=== PATIENT | female | born 1965 | race Two or more races ===

== ENCOUNTER 2023-08-02 11:09 | Emergency (ER) | payer OTHER ==
[~2023-08-02] VITALS: Ht 154.9 cm; Wt 42.6 kg
[2023-08-02] MEDS: CEFEPIME 1 GM in IV D5W 50 ML IV ONE (12:21)
[2023-08-02] MEDS: VANCOMYCIN 1 GM in IV D5W 250 ML IV ONE (12:35)
[2023-08-02 13:38] VITALS: BP 129/86; TEMP 98.1; O2SAT 96
[2023-08-02] MEDS ORDERED: CEPH500C2 PO (13:56)
[2023-08-02] MEDS ORDERED: DOXY100C2 PO (13:56)
== END 2023-08-02 15:20 | disposition home or self-care (01) ==
LOC: ER 11:09
DX: L03.115 Cellulitis of right lower limb (principal); E11.9 Type 2 diabetes mellitus without complications; Z60.2 Problems related to living alone
CPT/HCPCS: A4223; J0692; J3370; J7060

== ENCOUNTER 2023-10-29 13:26 | Inpatient (IN) | payer OTHER ==
[~2023-10-29] VITALS: Ht 152.4 cm; Wt 42.2 kg
[~2023-10-29 13:26] MED LIST: CEPH500C2 PO; DOXY100C2 PO
[2023-10-29 15:09] LABS: BASOPHILS % (AUTO) 0.7 % (0.0-2.0); EOSINOPHILS # (AUTO) 0.1 K/uL (0.0-0.7); EOSINOPHILS % (AUTO) 1.5 % (0.0-6.0); HEMATOCRIT 32 % (33-45); HEMOGLOBIN 10.4 g/dL (11.5-14.8); LYMPHOCYTES % (AUTO) 17.4 % (20.0-44.0); MEAN CORPUSCULAR HEMOGLOBIN 26 PG (26.0-33.0); MEAN CORPUSCULAR HGB CONC 32 g/dl (31.0-36.0); MEAN CORPUSCULAR VOLUME 79 fL (82-100); MONOCYTES # (AUTO) 0.2 K/uL (0.1-1.30); MONOCYTES % (AUTO) 3.9 % (2.0-12.0); NEUTROPHILS # (AUTO) 4.4 K/uL (1.8-8.9); NEUTROPHILS % (AUTO) 76.5 % (43.0-81.0); PLATELET COUNT (AUTO) 317 K/uL (150-450); RED BLOOD CELL COUNT(AUTO) 4.05 MIL/uL (4.0-5.2); RED CELL DISTRIBUTION WIDTH 16.9 % (11.5-15.0); WHITE BLOOD COUNT (AUTO) 5.7 K/uL (4.3-11.0)
[2023-10-29 15:26] LABS: LACTIC ACID 1.6 mmol/L (0.4-2.0)
[2023-10-29 15:32] LABS: ALBUMIN 2.3 g/dL (3.4-5.0); BILIRUBIN,DIRECT 0.2 mg/dL (0.0-0.2); BILIRUBIN,TOTAL 0.4 mg/dL (0.2-1.0); CALCIUM, SERUM 7.4 mg/dL (8.5-10.1); CREATININE 0.5 mg/dL (0.6-1.3); TOTAL PROTEIN, SERUM 7.6 g/dL (6.4-8.2)
[2023-10-29 15:39] LABS: POTASSIUM 2.4 mmol/L (3.5-5.1)
[2023-10-29] MEDS: IV LR 1000 ML 1,000 ML BAG IV ONE (15:48)
[2023-10-29] MEDS ORDERED: POTASSIUM CL. PREMIX PERIPHER. 50 ML ONE ×2 (16:05→17:08)
[2023-10-29] MEDS ORDERED: POTASSIUM CHLORIDE 20 MEQ TAB.PRT.SR PO ONE (16:05)
[2023-10-29 16:10] LABS: APPEARANCE,URINE Clear (CLEAR); BILIRUBIN,URINE Negative (NEGATIVE); BLOOD, URINE Negative Ery/uL (NEGATIVE); COLOR,URINE YELLOW (YELLOW); KETONES,URINE Negative (NEGATIVE); LEUKOCYTE ESTERASE ,URINE Negative (NEGATIVE); NITRITE, URINE Positive (NEGATIVE); PROTEIN,URINE Negative (NEGATIVE); UGLUCOSE >=1000 mg/dL (NEGATIVE)
[2023-10-29] MEDS: POTASSIUM CL. PREMIX PERIPHER. 50 ML IV SCH (16:15)
[2023-10-29] MEDS: POTASSIUM CHLORIDE 20 MEQ TAB.PRT.SR PO ONE (16:15)
[2023-10-29 16:27] LABS: ADD URINE CULTURE YES; BACTERIA,URINE Many /HPF (None Seen); RBC,URINE 0-2 /HPF (0-2); SQUAMOUS EPITHELIAL CELL,UR Few /HPF (None Seen); WBC,URINE 0-2 /HPF (0-3); YEAST,URINE Moderate /HPF (None Seen)
[2023-10-29] MEDS: CEFTRIAXONE 1GM BAG (ER ONLY) 1 GM/50 ML PIGGYBACK IV ONE (17:51)
[2023-10-29] MEDS ORDERED: FLUCONAZOLE (100 MG) 100 MG TABLET PO STA (18:29)
[2023-10-29] MEDS ORDERED: hydrALAZINE HCL IV 20 MG VIAL IV PRN (18:30)
[2023-10-29] MEDS ORDERED: ACETAMINOPHEN 325 MG TABLET PO PRN (18:30)
[2023-10-29] MEDS ORDERED: ONDANSETRON HCL/PF 4 MG/2 ML VIAL IVP PRN (18:30)
[2023-10-29 18:45] VITALS: BP 115/67; TEMP 98.1; O2SAT 100
[2023-10-29 20:15] LABS: LACTIC ACID 2.1 mmol/L (0.4-2.0)
[2023-10-29] MEDS: HEPARIN SODIUM, PORCINE 5000 UNITS/1 ML VIAL SQ SCH (21:31)
[2023-10-29] MEDS: IV NS 0.9% 1,000 ML IV PRN (21:46)
[2023-10-29] MEDS: BLOOD SUGAR DIAGNOSTIC 1 EACH STRIP IN SCH (23:24)
[2023-10-29] MEDS: *INSULIN REGULAR(HUMULIN R)HUM 100 UNIT/ML VIAL SQ PRN (23:46)
[2023-10-30] VITALS: BP 130/86; TEMP 97.5; O2SAT 98
[2023-10-30 04:00] VITALS: BP 124/73; TEMP 98.5; O2SAT 99
[2023-10-30] MEDS: DEXTROSE 50%-WATER 50 ML DISP.SYRIN IV PRN (06:21)
[2023-10-30 07:31] LABS: EOSINOPHILS % (AUTO) 0.2 % (0.0-6.0); HEMATOCRIT 30 % (33-45); HEMOGLOBIN 9.8 g/dL (11.5-14.8); LYMPHOCYTES % (AUTO) 23.8 % (20.0-44.0); MEAN CORPUSCULAR HEMOGLOBIN 27 PG (26.0-33.0); MEAN CORPUSCULAR HGB CONC 33 g/dl (31.0-36.0); MEAN CORPUSCULAR VOLUME 80 fL (82-100); MONOCYTES % (AUTO) 4.2 % (2.0-12.0); NEUTROPHILS % (AUTO) 71.5 % (43.0-81.0); PLATELET COUNT (AUTO) 322 K/uL (150-450); RED BLOOD CELL COUNT(AUTO) 3.68 MIL/uL (4.0-5.2); RED CELL DISTRIBUTION WIDTH 16.9 % (11.5-15.0); WHITE BLOOD COUNT (AUTO) 4.8 K/uL (4.3-11.0)
[2023-10-30 07:32] LABS: BASOPHILS % (AUTO) 0.3 % (0.0-2.0); LYMPHOCYTES # (AUTO) 1.1 K/uL (0.8-4.8); MONOCYTES # (AUTO) 0.2 K/uL (0.1-1.30); NEUTROPHILS # (AUTO) 3.4 K/uL (1.8-8.9)
[2023-10-30 08:00] VITALS: BP 94/58; TEMP 97.7; O2SAT 100
[2023-10-30] MEDS: POLYETHYLENE GLYCOL 3350 17 GM POWD.PACK PO SCH (08:28)
[2023-10-30] MEDS: POTASSIUM CHLORIDE 20 MEQ TAB.PRT.SR PO SCH (08:29)
[2023-10-30] MEDS: DOCUSATE SODIUM LIQ 100 MG/10 ML UDC PO SCH (08:29)
[2023-10-30 08:58] LABS: ALBUMIN 1.8 g/dL (3.4-5.0); BILIRUBIN,TOTAL 0.3 mg/dL (0.2-1.0); CALCIUM, SERUM 6.9 mg/dL (8.5-10.1); CREATININE 0.5 mg/dL (0.6-1.3); MAGNESIUM 1.3 mg/dL (1.8-2.4); PHOSPHORUS 1.9 mg/dL (2.5-4.9); TOTAL PROTEIN, SERUM 6.5 g/dL (6.4-8.2)
[2023-10-30 09:09] LABS: POTASSIUM 2.7 mmol/L (3.5-5.1)
[2023-10-30] MEDS ORDERED: NS 0.9% IV SCH (10:00)
[2023-10-30] MEDS ORDERED: POTASSIUM PHOSPHATE MM IV SCH (10:00)
[2023-10-30] MEDS: MAGNESIUM OXIDE 400 MG TABLET PO ONE (10:12)
[2023-10-30] MEDS: POTASSIUM PHOSPHATE MM 7.5 MMOL in IV NS 0.9% 100 ML IV SCH (10:30)
[2023-10-30] MEDS: INSULIN REGULAR, HUMAN 100 UNIT/ML 3 ML VIAL SQ PRN (11:51)
[2023-10-30 12:00] VITALS: BP 126/77; TEMP 97.6; O2SAT 100
[2023-10-30 16:00] VITALS: BP 123/81; TEMP 98.2; O2SAT 100
[2023-10-30] MEDS: CEFTRIAXONE 1 G in IV D5W 50 ML IV SCH (16:22)
[2023-10-30 20:00] VITALS: BP 131/81; TEMP 98.8; O2SAT 97
[2023-10-31] VITALS (7 sets, daily range): BP systolic 108–138; BP diastolic 67–85; TEMP 98–99.1; O2SAT 96–100
[2023-10-31] MEDS: MORPHINE SULFATE INJ 2 MG/ML DISP.SYRIN IV PRN (08:40)
[2023-10-31] MEDS: DICLOFENAC TOPICAL 100 GM TUBE TP SCH (09:54)
[2023-10-31 11:45] LABS: ALBUMIN 2.1 g/dL (3.4-5.0); BILIRUBIN,TOTAL 0.4 mg/dL (0.2-1.0); CALCIUM, SERUM 7.1 mg/dL (8.5-10.1); CREATININE 0.7 mg/dL (0.6-1.3); POTASSIUM 3.5 mmol/L (3.5-5.1); TOTAL PROTEIN, SERUM 7.8 g/dL (6.4-8.2)
[2023-10-31] MEDS ORDERED: GLUCERNA SHAKE 237 ML CAN PO SCH (17:00)
[2023-10-31] MEDS: GLUCERNA SHAKE 237 ML CAN PO SCH (17:44)
[2023-10-31] MEDS ORDERED: NITR100C15 PO (20:09)
[2023-10-31] MEDS ORDERED: INSU100V7 SQ (20:09)
[2023-11-01] VITALS: BP_SYST 140; BP_DIAS 78; BP_DIAS 81; TEMP 98.4; O2SAT 97
[2023-11-01 00:48] VITALS: BP 130/80; TEMP 98.8; O2SAT 96
[2023-11-01 07:33] LABS: BASOPHILS # (AUTO) 0.1 K/uL (0.0-0.2); EOSINOPHILS % (AUTO) 0.5 % (0.0-6.0); HEMATOCRIT 35 % (33-45); HEMOGLOBIN 11.3 g/dL (11.5-14.8); LYMPHOCYTES # (AUTO) 2.3 K/uL (0.8-4.8); LYMPHOCYTES % (AUTO) 30.7 % (20.0-44.0); MEAN CORPUSCULAR HEMOGLOBIN 26 PG (26.0-33.0); MEAN CORPUSCULAR HGB CONC 32 g/dl (31.0-36.0); MEAN CORPUSCULAR VOLUME 82 fL (82-100); MONOCYTES # (AUTO) 0.3 K/uL (0.1-1.30); MONOCYTES % (AUTO) 3.5 % (2.0-12.0); NEUTROPHILS # (AUTO) 4.8 K/uL (1.8-8.9); NEUTROPHILS % (AUTO) 64.3 % (43.0-81.0); PLATELET COUNT (AUTO) 341 K/uL (150-450); RED CELL DISTRIBUTION WIDTH 17.4 % (11.5-15.0); WHITE BLOOD COUNT (AUTO) 7.5 K/uL (4.3-11.0)
[2023-11-01 07:40] LABS: ALBUMIN 1.8 g/dL (3.4-5.0); BILIRUBIN,TOTAL 0.4 mg/dL (0.2-1.0); CREATININE 0.5 mg/dL (0.6-1.3); POTASSIUM 4.2 mmol/L (3.5-5.1)
[2023-11-01 08:00] VITALS: BP 102/62; TEMP 97.2; O2SAT 96
[2023-11-01 12:00] VITALS: BP 128/70; TEMP 97.9; O2SAT 100
[2023-11-01 16:00] VITALS: BP 118/58; TEMP 97.8; O2SAT 98
[2023-11-01 20:00] VITALS: BP 133/72; TEMP 97.8; O2SAT 97
[2023-11-02] VITALS: BP 133/72; TEMP 97.8; O2SAT 97
[2023-11-02 07:59] LABS: ALBUMIN 1.6 g/dL (3.4-5.0); BILIRUBIN,TOTAL 0.4 mg/dL (0.2-1.0); CALCIUM, SERUM 7.1 mg/dL (8.5-10.1); CREATININE 0.5 mg/dL (0.6-1.3); POTASSIUM 4.2 mmol/L (3.5-5.1); TOTAL PROTEIN, SERUM 6.6 g/dL (6.4-8.2)
[2023-11-02 08:00] VITALS: BP 114/54; TEMP 98.4; O2SAT 99
== END 2023-11-02 13:35 | DRG 637 ==
LOC: ER 13:29 → TELE 18:20
PROVIDERS: ADMIT Internal Medicine; ATTEND Internal Medicine
DX: E10.65 Type 1 diabetes mellitus with hyperglycemia (principal); E43 Unspecified severe protein-calorie malnutrition; B37.49 Other urogenital candidiasis; N39.0 Urinary tract infection, site not specified; E46 Unspecified protein-calorie malnutrition; L97.919 Non-pressure chronic ulcer of unspecified part of right lower leg with unspecified severity; E87.1 Hypo-osmolality and hyponatremia; Z68.1 Body mass index [BMI] 19.9 or less, adult; E87.6 Hypokalemia; E83.51 Hypocalcemia; R53.1 Weakness; R74.01 Elevation of levels of liver transaminase levels; Z91.199 Patient's noncompliance with other medical treatment and regimen due to unspecified reason; Z98.84 Bariatric surgery status; S81.811A Laceration without foreign body, right lower leg, initial encounter; X58.XXXA Exposure to other specified factors, initial encounter; Y93.9 Activity, unspecified; E10.622 Type 1 diabetes mellitus with other skin ulcer; D64.9 Anemia, unspecified; Z79.4 Long term (current) use of insulin; B96.20 Unspecified Escherichia coli [E. coli] as the cause of diseases classified elsewhere; Y92.009 Unspecified place in unspecified non-institutional (private) residence as the place of occurrence of the external cause
CPT/HCPCS: 36415; 71045-TC; 76700-TC; 80048-TC; 80053-TC; 80076-TC; 81001; 82010-TC; 82962-TC; 83605-TC; 83690-TC; 83735-TC; 83880; 84100-TC; 85025-TC; 87086-TC; 97110-TC; 97112-TC; 97116-TC; 97530-TC; 97535-TC; A4223; A6253; G0378; J0696; J1644; J1815; J2270; J3480; J3490; J7030; J7050; J7060; J7120

== ENCOUNTER 2023-12-28 21:47 | Emergency (ER) | payer MEDICARE, OTHER ==
[~2023-12-28] VITALS: Ht 154.9 cm; Wt 42.2 kg
[~2023-12-28 21:47] MED LIST changes: -CEPH500C2 PO; -DOXY100C2 PO; +INSU100V7 SQ; +NITR100C15 PO
[2023-12-28 21:59] VITALS: TEMP 98.6
[2023-12-28] MEDS ORDERED: ACETAMINOPHEN 325 MG TABLET ONE (22:19)
[2023-12-28] MEDS: ACETAMINOPHEN 325 MG TABLET PO ONE (22:21)
[2023-12-29 00:46] VITALS: BP 118/65; O2SAT 99
== END 2023-12-29 00:46 ==
LOC: ER 21:59
DX: S52.022A Displaced fracture of olecranon process without intraarticular extension of left ulna, initial encounter for closed fracture (principal); I10 Essential (primary) hypertension; Z79.899 Other long term (current) drug therapy; W18.39XA Other fall on same level, initial encounter; Y93.89 Activity, other specified; Y92.89 Other specified places as the place of occurrence of the external cause; Y99.8 Other external cause status
CPT/HCPCS: 73060-TC; 73080-TC; 73090-TC

== ENCOUNTER 2024-10-22 15:29 | Inpatient (IN) | payer MEDICARE, OTHER ==
[~2024-10-22] VITALS: Ht 154.9 cm; Wt 52.6 kg
[2024-10-22 03:08] VITALS: BP 119/81; TEMP 97.3; O2SAT 99
[2024-10-22] MEDS: IV NS 0.9% 1,000 ML BAG IV ONE ×2 (15:57→16:57)
[2024-10-22] MEDS ORDERED: ACETAMINOPHEN 650 MG/SUPP.RECT RC ONE (15:58)
[2024-10-22] MEDS ORDERED: ACETAMINOPHEN 325 MG TABLET PO ONE (16:00)
[2024-10-22] MEDS: ACETAMINOPHEN 650 MG/SUPP.RECT RC ONE (16:00)
[2024-10-22 16:16] LABS: BASOPHILS % (AUTO) 0.5 % (0.0-2.0); EOSINOPHILS # (AUTO) 0.1 K/uL (0.0-0.7); EOSINOPHILS % (AUTO) 1.5 % (0.0-6.0); HEMATOCRIT 31 % (33-45); HEMOGLOBIN 9.8 g/dL (11.5-14.8); LYMPHOCYTES # (AUTO) 1.5 K/uL (0.8-4.8); MEAN CORPUSCULAR HEMOGLOBIN 25 PG (26.0-33.0); MEAN CORPUSCULAR HGB CONC 32 g/dl (31.0-36.0); MEAN CORPUSCULAR VOLUME 79 fL (82-100); MONOCYTES # (AUTO) 0.3 K/uL (0.1-1.30); MONOCYTES % (AUTO) 6.2 % (2.0-12.0); NEUTROPHILS # (AUTO) 3.2 K/uL (1.8-8.9); NEUTROPHILS % (AUTO) 62.8 % (43.0-81.0); PLATELET COUNT (AUTO) 297 K/uL (150-450); RED CELL DISTRIBUTION WIDTH 17.4 % (11.5-15.0); WHITE BLOOD COUNT (AUTO) 5.1 K/uL (4.3-11.0)
[2024-10-22 16:29] LABS: INR 1.12 (0.91-1.10); PARTIAL THROMBOPLASTIN TIME 26.4 SEC (24.3-34.3); PROTHROMBIN TIME 11.8 SECS (9.2-11.1)
[2024-10-22] MEDS ORDERED: QUET25TA PO (16:36)
[2024-10-22] MEDS ORDERED: INSU100V39 SQ (16:36)
[2024-10-22] MEDS ORDERED: DICL100G26 TP (16:36)
[2024-10-22] MEDS ORDERED: OXYC5TAB3 PO (16:36)
[2024-10-22] MEDS ORDERED: INSU100I30 SQ (16:36)
[2024-10-22] MEDS ORDERED: CEPH500C2 PO (16:36)
[2024-10-22 16:38] LABS: CALCIUM, SERUM 7.8 mg/dL (8.5-10.1); CARBON DIOXIDE 26 mmol/L (21-32); CHLORIDE 105 mmol/L (98-107); CREATININE 0.5 mg/dL (0.6-1.3); GLUCOSE 345 mg/dL (74-106); POTASSIUM 3.8 mmol/L (3.5-5.1); SODIUM SERUM 137 mmol/L (136-145); UREA NITROGEN, BLOOD 5 mg/dL (7-18)
[2024-10-22 16:42] LABS: ALANINE AMINOTRANSFERASE 23 U/L (12-78); ALBUMIN 2.3 g/dL (3.4-5.0); ALKALINE PHOSPHATASE 142 U/L (46-116); ASPARTATE AMINOTRANSFERASE 20 U/L (15-37); BILIRUBIN,DIRECT 0.1 mg/dL (0.0-0.2); BILIRUBIN,TOTAL 0.2 mg/dL (0.2-1.0); TOTAL PROTEIN, SERUM 6.4 g/dL (6.4-8.2)
[2024-10-22 16:59] LABS: LACTIC ACID 2.4 mmol/L (0.4-2.0)
[2024-10-22] MEDS: PIPERACILLIN /TAZOBACTAM 3.375 G in IV D5W 50 ML IV ONE ×2 (17:30→22:30)
[2024-10-22 17:31] LABS: APPEARANCE,URINE SLIGHTLY CLOUDY (CLEAR); BILIRUBIN,URINE NEGATIVE (NEGATIVE); BLOOD, URINE TRACE-INTA Ery/uL (NEGATIVE); COLOR,URINE YELLOW (YELLOW); KETONES,URINE NEGATIVE (NEGATIVE); LEUKOCYTE ESTERASE ,URINE TRACE (NEGATIVE); NITRITE, URINE NEGATIVE (NEGATIVE); PROTEIN,URINE NEGATIVE (NEGATIVE); UGLUCOSE 3+ mg/dL (NEGATIVE); UROBILINOGEN,URINE 0.2 EU/dL (0.2)
[2024-10-22] MEDS ORDERED: PIPERACI/TAZO 3.375GM/D5W 50ML PB IV ONE (18:09)
[2024-10-22 20:27] LABS: YEAST,URINE Many /HPF (None Seen)
[2024-10-22 20:29] LABS: ADD URINE CULTURE YES; BACTERIA,URINE Few /HPF (None Seen); CALCIUM OXALATE CRYSTALS,UR Few /HPF (None Seen); SQUAMOUS EPITHELIAL CELL,UR Few /HPF (None Seen); WBC,URINE 21-50 /HPF (0-3)
[2024-10-22] MEDS ORDERED: ONDANSETRON HCL/PF 4 MG/2 ML VIAL IVP PRN (22:30)
[2024-10-22] MEDS ORDERED: Z GUARD REMEDY 4 OZ OINT TP PRN (22:30)
[2024-10-22] MEDS ORDERED: MAGNESIUM HYDROXIDE 30 ML UDC PO PRN (22:30)
[2024-10-22] MEDS ORDERED: DEXTROSE 50%-WATER 50 ML DISP.SYRIN IV PRN (22:30)
[2024-10-22] MEDS ORDERED: MAG HYDROX/AL HYDROX/SIMETH 30 ML UDC PO PRN (22:30)
[2024-10-23] VITALS: BP 130/68; TEMP 97.4; O2SAT 99
[2024-10-23] MEDS: IV NS 0.9% 1,000 ML IV PRN (01:29)
[2024-10-23] MEDS: PIPERACI/TAZO 3.375GM/D5W 50ML PB IV ONE (01:54)
[2024-10-23] MEDS: PIPERACILLIN /TAZOBACTAM 3.375 G in IV D5W 50 ML IV ONE (01:55)
[2024-10-23] MEDS ORDERED: FLUCONAZOLE IN NS 100 ML IV ONE (03:07)
[2024-10-23] MEDS: FLUCONAZOLE IN NS 100 MG in PREMIX 1 EA IV ONE (03:11)
[2024-10-23 04:00] VITALS: BP 130/68; TEMP 97.5; O2SAT 97
[2024-10-23] MEDS: BLOOD SUGAR DIAGNOSTIC 1 EACH STRIP IN SCH (06:46)
[2024-10-23] MEDS: INSULIN REGULAR, HUMAN 100 UNIT/ML 3 ML VIAL SQ PRN (06:49)
[2024-10-23 06:52] LABS: BASOPHILS % (AUTO) 0.4 % (0.0-2.0); EOSINOPHILS # (AUTO) 0.2 K/uL (0.0-0.7); EOSINOPHILS % (AUTO) 2.3 % (0.0-6.0); HEMATOCRIT 31 % (33-45); HEMOGLOBIN 9.9 g/dL (11.5-14.8); LYMPHOCYTES # (AUTO) 1.1 K/uL (0.8-4.8); LYMPHOCYTES % (AUTO) 12.2 % (20.0-44.0); MEAN CORPUSCULAR HEMOGLOBIN 25 PG (26.0-33.0); MEAN CORPUSCULAR HGB CONC 32 g/dl (31.0-36.0); MEAN CORPUSCULAR VOLUME 78 fL (82-100); MONOCYTES # (AUTO) 0.4 K/uL (0.1-1.30); MONOCYTES % (AUTO) 4.4 % (2.0-12.0); NEUTROPHILS # (AUTO) 7.1 K/uL (1.8-8.9); NEUTROPHILS % (AUTO) 80.7 % (43.0-81.0); PLATELET COUNT (AUTO) 269 K/uL (150-450); RED BLOOD CELL COUNT(AUTO) 3.99 MIL/uL (4.0-5.2); RED CELL DISTRIBUTION WIDTH 17.2 % (11.5-15.0); WHITE BLOOD COUNT (AUTO) 8.8 K/uL (4.3-11.0)
[2024-10-23 07:03] LABS: CREATININE 0.4 mg/dL (0.6-1.3); MAGNESIUM 1.9 mg/dL (1.8-2.4); PHOSPHORUS 4.3 mg/dL (2.5-4.9); POTASSIUM 3.9 mmol/L (3.5-5.1)
[2024-10-23 07:30] VITALS: BP 122/64; TEMP 98.8; O2SAT 97
[2024-10-23] MEDS ORDERED: PIPERACILLIN /TAZOBACTAM 3.375 G in IV D5W 50 ML IV SCH (08:00)
[2024-10-23] MEDS: PIPERACILLIN /TAZOBACTAM 3.375 G in IV D5W 100 ML IV SCH (08:32)
[2024-10-23] MEDS: ACETAMINOPHEN 325 MG TABLET PO PRN (10:27)
[2024-10-23 16:00] VITALS: BP 115/64; TEMP 97.9; O2SAT 95
[2024-10-23] MEDS: PREGABALIN 25 MG CAPSULE PO SCH (16:08)
[2024-10-23 20:00] VITALS: BP 119/65; TEMP 97.9; O2SAT 97
[2024-10-23] MEDS: HYDROCODONE/APAP 10/325MG TABLET PO PRN (20:18)
[2024-10-23] MEDS: FLUCONAZOLE IN NS 100 MG in PREMIX 1 EA IV SCH (20:56)
[2024-10-23] MEDS: INSULIN GLARGINE, 100 UNIT/ML CARTRIDGE SQ SCH (21:41)
[2024-10-24 07:38] LABS: BASOPHILS % (AUTO) 0.5 % (0.0-2.0); EOSINOPHILS # (AUTO) 0.2 K/uL (0.0-0.7); EOSINOPHILS % (AUTO) 2.6 % (0.0-6.0); HEMATOCRIT 30 % (33-45); HEMOGLOBIN 9.7 g/dL (11.5-14.8); LYMPHOCYTES # (AUTO) 1.6 K/uL (0.8-4.8); MEAN CORPUSCULAR HEMOGLOBIN 25 PG (26.0-33.0); MEAN CORPUSCULAR HGB CONC 33 g/dl (31.0-36.0); MEAN CORPUSCULAR VOLUME 77 fL (82-100); MONOCYTES # (AUTO) 0.3 K/uL (0.1-1.30); MONOCYTES % (AUTO) 5.3 % (2.0-12.0); NEUTROPHILS # (AUTO) 3.6 K/uL (1.8-8.9); NEUTROPHILS % (AUTO) 63.6 % (43.0-81.0); PLATELET COUNT (AUTO) 303 K/uL (150-450); RED BLOOD CELL COUNT(AUTO) 3.86 MIL/uL (4.0-5.2); RED CELL DISTRIBUTION WIDTH 16.8 % (11.5-15.0); WHITE BLOOD COUNT (AUTO) 5.7 K/uL (4.3-11.0)
[2024-10-24 08:30] VITALS: BP 127/76; TEMP 98.1; O2SAT 96
[2024-10-24 09:23] LABS: CALCIUM, SERUM 7.7 mg/dL (8.5-10.1); CREATININE 0.4 mg/dL (0.6-1.3); MAGNESIUM 1.8 mg/dL (1.8-2.4); PHOSPHORUS 3.8 mg/dL (2.5-4.9); POTASSIUM 3.1 mmol/L (3.5-5.1)
[2024-10-24 09:44] LABS: THYROID STIMULATING HORMONE 1.69 uIU/mL (0.358-3.74)
[2024-10-24] MEDS: POTASSIUM CHLORIDE 20 MEQ TAB.PRT.SR PO SCH (11:02)
[2024-10-24 16:00] VITALS: BP 132/72; TEMP 98.2; O2SAT 96
[2024-10-24 20:00] VITALS: BP 126/74; TEMP 99.1; O2SAT 98
[2024-10-25 06:34] LABS: BASOPHILS % (AUTO) 0.5 % (0.0-2.0); EOSINOPHILS # (AUTO) 0.1 K/uL (0.0-0.7); EOSINOPHILS % (AUTO) 1.9 % (0.0-6.0); HEMATOCRIT 33 % (33-45); HEMOGLOBIN 10.8 g/dL (11.5-14.8); LYMPHOCYTES # (AUTO) 1.6 K/uL (0.8-4.8); LYMPHOCYTES % (AUTO) 25.9 % (20.0-44.0); MEAN CORPUSCULAR HEMOGLOBIN 25 PG (26.0-33.0); MEAN CORPUSCULAR HGB CONC 33 g/dl (31.0-36.0); MEAN CORPUSCULAR VOLUME 77 fL (82-100); MONOCYTES # (AUTO) 0.5 K/uL (0.1-1.30); MONOCYTES % (AUTO) 8.2 % (2.0-12.0); NEUTROPHILS # (AUTO) 3.9 K/uL (1.8-8.9); NEUTROPHILS % (AUTO) 63.5 % (43.0-81.0); PLATELET COUNT (AUTO) 390 K/uL (150-450); RED BLOOD CELL COUNT(AUTO) 4.29 MIL/uL (4.0-5.2); RED CELL DISTRIBUTION WIDTH 17.4 % (11.5-15.0); WHITE BLOOD COUNT (AUTO) 6.1 K/uL (4.3-11.0)
[2024-10-25 06:47] LABS: CALCIUM, SERUM 8.2 mg/dL (8.5-10.1); CREATININE 0.4 mg/dL (0.6-1.3); MAGNESIUM 1.9 mg/dL (1.8-2.4); PHOSPHORUS 4.1 mg/dL (2.5-4.9); POTASSIUM 3.3 mmol/L (3.5-5.1)
[2024-10-25 07:00] VITALS: BP_SYST 102; BP_SYST 148; BP_DIAS 71; BP_DIAS 79; TEMP 97.5; TEMP 98.1; O2SAT 94; O2SAT 98
[2024-10-25] MEDS: FLUCONAZOLE (100 MG) 100 MG TABLET PO SCH (08:26)
[2024-10-25] MEDS: POTASSIUM CHLORIDE 20 MEQ TAB.PRT.SR PO ONE (11:41)
[2024-10-25 13:40] VITALS: TEMP 98.2
== END 2024-10-25 13:00 | DRG 757 ==
LOC: ER 15:41 → TELE 20:53 → MED 10-24 16:26
PROVIDERS: ADMIT Nurse Practitioner Acute Care; ATTEND Nurse Practitioner Family
DX: B37.49 Other urogenital candidiasis (principal); G93.41 Metabolic encephalopathy; E44.0 Moderate protein-calorie malnutrition; D68.59 Other primary thrombophilia; E87.20 Acidosis, unspecified; D63.8 Anemia in other chronic diseases classified elsewhere; E11.65 Type 2 diabetes mellitus with hyperglycemia; E88.09 Other disorders of plasma-protein metabolism, not elsewhere classified; Z79.4 Long term (current) use of insulin; Z20.822 Contact with and (suspected) exposure to COVID-19; R53.1 Weakness; Z74.09 Other reduced mobility; Z68.21 Body mass index [BMI] 21.0-21.9, adult; S82.301A Unspecified fracture of lower end of right tibia, initial encounter for closed fracture; X58.XXXA Exposure to other specified factors, initial encounter; Y93.9 Activity, unspecified; Y92.009 Unspecified place in unspecified non-institutional (private) residence as the place of occurrence of the external cause
CPT/HCPCS: 36415; 70450-TC; 71045-TC; 73564-TC; 73610-TC; 80048-TC; 80076-TC; 81001; 82728-TC; 82962-TC; 83540-TC; 83605-TC; 83735-TC; 84100-TC; 84443-TC; 85025-TC; 85730-TC; 87040-TC; 87086-TC; 93971-TC; 97110-TC; 97530-TC; 97535-TC; A4216; A4223; G0378; J1450; J1815; J2543; J7030; J7050; J7060